=== PATIENT | female | born 1980 | race Caucasian/White ===

== ENCOUNTER 2019-12-22 11:20 | Emergency (ER) | payer OTHER ==
[~2019-12-22] VITALS: Ht 152.4 cm; Wt 61.2 kg
[2019-12-22] MEDS ORDERED: HORIZANT300 MG (11:41)
[2019-12-22] MEDS ORDERED: ULTRAM50 MG (11:41)
[2019-12-22] MEDS ORDERED: AMRIX15 MG (11:41)
[2019-12-22] MEDS ORDERED: HYDROCHLOROTHIA25 MG (11:42)
[2019-12-22] MEDS ORDERED: NAPR500T14 (11:43)
== END 2019-12-22 17:16 | disposition home or self-care (01) ==
LOC: ER 11:20
DX: K52.89 Other specified noninfective gastroenteritis and colitis (principal)